=== PATIENT | male | born 1930 | race Caucasian/White ===

== ENCOUNTER 2017-10-06 14:19 | Inpatient (IN) | payer MEDICARE, BC ==
[2017-10-06] MEDS: Sodium Chloride 0.9% 10 ML Syringe FLUSH PRN (14:44)
[2017-10-06 15:13] LABS: ANION GAP 15.7; CHLORIDE,CL 100 mmol/L (101-111); SODIUM,NA 130 mmol/L (135-145)
[2017-10-06] MEDS ORDERED: Sodium Chloride 0.9% 1,000 ML IV ONE (15:35)
[2017-10-06] MEDS ORDERED: Ondansetron 4 MG Tab.DIS PO PRN (18:00)
[2017-10-06] MEDS ORDERED: Sodium Chloride 0.9% 1,000 ML IV SCH (18:00)
[2017-10-06] MEDS ORDERED: 50% Dextrose in Water 50 ML Syringe IVPUSH PRN (18:06)
[2017-10-06] MEDS: Oseltamivir 30 MG Cap PO SCH ×2 (18:45→21:42)
[2017-10-06] MEDS: Acetaminophen 325 MG Tab PO PRN (19:50)
[2017-10-06] MEDS: atorvaSTATin 20 MG Tab PO SCH (21:42)
[2017-10-06] MEDS: Heparin Sodium 5,000 Units/ML Vial SUBCUT SCH (21:42)
[2017-10-06] MEDS: Insulin Aspart 100 Units/ML 3 ML Pen SUBCUT SCH (21:43)
--- NOTE | 2017-10-07 01:03 | HP ---
CHIEF COMPLAINT: Weakness and diarrhea. HISTORY OF PRESENTING ILLNESS: Mr. Michael Spencer is an 86-year-old male with medical history significant for hypertension, hyperlipidemia, type 2 diabetes mellitus, external hemorrhoids, and benign prostatic hypertrophy, gastroesophageal reflux disease, and peptic ulcer disease in the past, presents to the ER with complaints of increasing diarrhea and weakness, and was noted to have acute renal failure and also positive for influenza B requiring admission to the hospital. The patient claims that for the last 3 to 4 days the patient has been having diarrhea, loose in nature. Initially, it started like 5 to 6 episodes a day, but yesterday had only 3 episodes a day which is leading to increasing weakness. He grades the weakness as 6/10 in intensity, aggravated on ambulation, relieved with rest, not associated with any chest pain. No shortness of breath. No abdominal pain. No cough. No sputum in the last few days, but complains of having chills and rigors at times. The patient denied any history of chest pains on exertion. No history of dyspnea on exertion. No history of orthopnea or paroxysmal nocturnal dyspnea. The patient denied any history of hematemesis, hematochezia, or melenic stools. Normal bowel and bladder habits otherwise. REVIEW OF SYSTEMS: A complete review of system including skin, ear, nose, and throat, cardiovascular system, respiratory system, gastrointestinal system, genitourinary system, hematology, oncology, neurology, allergy, immunology, constitutional were all evaluated and were negative except for the above-said notes. PAST MEDICAL HISTORY: Significant for: 1. Hypertension. 2. Type 2 diabetes mellitus. 3. Hyperlipidemia. 4. Hernia. 5. Gastroesophageal reflux disease. 6. Peptic ulcer disease. 7. Benign prostatic hypertrophy. 8. External hemorrhoids. 9. Obesity. PAST SURGICAL HISTORY: Significant for: 1. Transurethral resection of the prostate. 2. Hernia repair in the past. FAMILY HISTORY: Significant for hypertension, diabetes in his mother. SOCIAL HISTORY: History of smoking tobacco in the past, but not currently. No history of alcohol intake. ALLERGIES: Allergic history: The patient noted to have allergies to: 1. Antihistamine. 2. Penicillin. 3. Simvastatin. MEDICATIONS: Home medications include: 1. Finasteride 5 mg daily. 2. Flax oil 1000 mg daily. 3. Amaryl 2 mg twice a day. 4. Multivitamin 1 tablet daily. 5. Magnesium 1 tablet 3 times a day. 6. Metformin 1 tablet twice a day. 7. Atorvastatin 1 tablet at bedtime. 8. Omeprazole 20 mg daily. 9. Chlorthalidone 12.5 mg daily. 10.Aspirin 81 mg daily. PHYSICAL EXAMINATION: Vital Signs: Temperature of 97.5, pulse of 107, blood pressure 129/86, respiratory rate of 20, saturating at 98% on room air. General Appearance: The patient is awake, alert, and oriented to time, place, and person. Follows commands spontaneously. Cardiovascular System: S1, S2 heard with normal intensity. No gallops. Respiratory System: Clear to auscultation bilaterally. No wheeze. No crepitations. Abdomen: Soft. Bowel sounds positive. Nontender. No rigidity. No guarding. No rebound tenderness. Extremities: No edema in bilateral lower extremities. Neurology: No gross focal neurological deficits. LABORATORY DATA: Reviewed: WBC 8.1, hemoglobin 14.7, hematocrit 43.2, platelet count 199. Sodium 130, potassium 3.7, chloride 100, bicarb 18, BUN 34, creatinine 1.7, glucose 186. Lactic acid 2.3. AST 58, ALT 38. Troponin less than 0.02. Microbiology: The patient tested positive for influenza B. ASSESSMENT: 1. Influenza B positive. 2. Severe dehydration from diarrhea. 3. Acute renal failure. 4. Hypertension. 5. Type 2 diabetes mellitus. 6. Hyperlipidemia. 7. Gastroesophageal reflux disease. 8. Hyponatremia. 9. Metabolic acidosis. PLAN: 1. Severe dehydration. The patient presents with severe dehydration leading to weakness. He is also noted to have bilateral imbalance including hyponatremia, metabolic acidosis, acute renal failure. The patient will be admitted to inpatient service, will need to be hydrated with IV fluids. 2. Acute renal failure. This is mainly from severe dehydration. The patient's creatinine is at 1.7 and elevated BUN up to 34. His baseline creatinine is noted to be around 1.1. We will avoid nephrotoxic agents. Dose adjust medications for renal function. Recheck a basic metabolic panel in a.m. Keep him hydrated with IV fluids. Hold the diuretics. Maintain euvolemic status. 3. Hyponatremia. This is hypovolemic hyponatremia from severe diarrhea. Continue with IV normal saline. Recheck a basic metabolic panel in a.m. 4. Influenza B. we will start him on Tamiflu. We will have him on droplet isolation, and we will continue the Tamiflu for the next 5 days. 5. Hypertension. The patient's blood pressure seems to be in acceptable range. The patient noted not to be on any antihypertensive medications. We will closely follow. Maintain euvolemic status. 6. Type 2 diabetes mellitus. The patient noted to be on metformin. We will need to hold the metformin for underlying acute renal failure. Continue with Amaryl. Check his fingersticks with each meals. Have him on supplemental scale insulin as needed for additional coverage of his blood glucose. 7. Deep vein thrombosis prophylaxis. We will have him on heparin for DVT prophylaxis. 8. Code status. The patient wants to be DNR, DNI. 9. Discussed with the patient and family members at bedside regarding the treatment goals and options. Discussed with [facility] ER physician, regarding the plan of care. Reviewed the labs and medications. Reviewed the old charts. [facility] /[id number]
[2017-10-07] MEDS: Acetaminophen 325 MG Tab PO PRN ×2 (01:05→18:28)
[2017-10-07] MEDS: Heparin Sodium 5,000 Units/ML Vial SUBCUT SCH ×3 (06:17→21:20)
[2017-10-07] MEDS: Glimepiride 2 MG Tab PO SCH ×2 (06:17→18:27)
[2017-10-07 06:47] LABS: ANION GAP 12.3
[2017-10-07] MEDS: Lutein/Minerals/Vit A,C & E Tab PO SCH (09:35)
[2017-10-07] MEDS: Calcium Carbonate/Vitamin D3 1250 MG-200 Unit Tab PO SCH (09:35)
[2017-10-07] MEDS: Finasteride 5 MG Tab PO SCH (09:36)
[2017-10-07] MEDS: Aspirin 81 MG Tab.EC PO SCH (09:36)
[2017-10-07] MEDS: Omeprazole 20 MG Cap.CR PO SCH (09:36)
[2017-10-07] MEDS: Oseltamivir 30 MG Cap PO SCH ×2 (09:36→20:26)
[2017-10-07] MEDS: Insulin Aspart 100 Units/ML 3 ML Pen SUBCUT SCH ×4 (09:37→21:00)
[2017-10-07] MEDS: Potassium Chloride 10 MEQ Tab.ER PO SCH ×2 (12:16→18:27)
[2017-10-07] MEDS: NS + KCl 20mEq/L 1,000 ML IV SCH ×2 (12:17→22:32)
[2017-10-07] MEDS: atorvaSTATin 20 MG Tab PO SCH (20:26)
[2017-10-08] MEDS: Heparin Sodium 5,000 Units/ML Vial SUBCUT SCH ×3 (06:07→22:04)
[2017-10-08 07:01] LABS: ANION GAP 12.9
[2017-10-08] MEDS ORDERED: Glimepiride 2 MG Tab PO SCH (08:00)
[2017-10-08] MEDS: Insulin Aspart 100 Units/ML 3 ML Pen SUBCUT SCH ×4 (08:31→22:07)
--- NOTE | 2017-10-08 08:31 | EDM.PDOC ---
ED HPI GENERAL MEDICAL PROBLEM - General Chief Complaint: Gastrointestinal Problem Stated Complaint: SICK Time Seen by Provider: 10/06/17 14:45 Source of Information: Reports: Patient, Family, RN, RN Notes Reviewed History Limitations: Reports: No Limitations - History of Present Illness INITIAL COMMENTS - FREE TEXT/NARRATIVE: Pt presents to the ER with his with c/o diarrhea since Monday. He denies fever, chills, and N/V. He states his urination has been decreased and he feels overall "worn out", weak, and tired. He states he is diabetic. Onset: Gradual Bilateral Lower Back Pain Score (Numeric/FACES): 2 - Related Data Allergies Allergy/AdvReac Type Severity Reaction Status Date / Time loratadine Allergy Cannot Verified 10/06/17 14:56 Remember Penicillins Allergy Cannot Verified 10/06/17 14:56 Remember simvastatin Allergy Cannot Verified 10/06/17 14:56 Remember Home Meds: Home Meds Aspirin [Ecotrin] 1 tab PO DAILY 05/19/16 [History] Calcium Carbonate/Vitamin D3 [Calcium 500-Vit D3 200 Tablet] 1 tab PO DAILY 01/25 [History] Chlorthalidone 12.5 mg PO DAILY 05/19/16 [History] Lutein/Minerals/Vit A,C & E [Ocuvite] 1 tab PO DAILY 05/19/16 [History] Magnesium 1 tab PO TID 05/19/16 [History] Multivitamin [Multivitamins] 1 tab PO DAILY 05/19/16 [History] Omeprazole 20 mg PO DAILY 05/19/16 [History] atorvaSTATin [Lipitor] 1 tab PO BEDTIME 05/19/16 [History] metFORMIN HCl [Glucophage] 1 tab PO BIDAC 05/19/16 [History] Finasteride 5 mg PO DAILY 10/06/17 [History] Flaxseed Oil [Flax Oil] 1,000 mg PO DAILY 10/06/17 [History] Glimepiride [Amaryl] 2 mg PO BIDAC 10/06/17 [History] Past Medical History HEENT History: Reports: Other (See Below) Other HEENT History: wears glasses, farsighted Cardiovascular History: Reports: Heart Murmur, High Cholesterol, Hypertension Respiratory History: Reports: Other (See Below) Other Respiratory History: pneumonia x2 in past Gastrointestinal History: Reports: Colon Polyp, GERD, Hemorrhoids, Other (See Below) Other Gastrointestinal History: peptic ulcer stricture, Minaya's esophagus, ventral hernia Genitourinary History: Reports: BPH, Other (See Below) Other Genitourinary History: UTI once Musculoskeletal History: Reports: Other (See Below) Other Musculoskeletal History: degenerative joint disease Endocrine/Metabolic History: Reports: Diabetes, Type II, Obesity/BMI 30+ Dermatologic History: Reports: Other (See Below) Other Dermatologic History: Roseacia, has ointment - Infectious Disease History Infectious Disease History: Reports: Chicken Pox, Measles - Past Surgical History GI Surgical History: Reports: Hernia, Inguinal, Hernia Repair/Other Male Surgical History: Reports: TURP-Transurethral Resection of Prostate Neurological Surgical History: Reports: Other (See Below) Musculoskeletal Surgical History: Reports: Other (See Below) Other Musculoskeletal Surgeries/Procedures:: herniated disk surgery 2006 Social & Family History - Family History Cardiac: Reports: Hypertension, [place], Other (See Below) Other Cardiac Family History: both parents - Tobacco Use Smoking Status *Q: Former Smoker Years of Tobacco use: 25 Used Tobacco, but Quit: Yes Month/Year Tobacco Last Used: jul Second Hand Smoke Exposure: No - Caffeine Use Caffeine Use: Reports: Coffee, Soda, Tea - Alcohol Use Days Per Week of Alcohol Use: 1 Number of Drinks Per Day: 2 Total Drinks Per Week: 2 - Recreational Drug Use Recreational Drug Use: No ED ROS GENERAL - Review of Systems Review Of Systems: ROS reveals no pertinent complaints other than HPI. ED EXAM, GI/ABD - Physical Exam Exam: See Below Exam Limited By: No Limitations General Appearance: Alert, WD/WN, No Apparent Distress, Other (Appears ill, weak and tired.) Eyes: Bilateral: Normal Appearance, EOMI Ears: Normal External Exam, Hearing Grossly Normal Nose: Normal Inspection Throat/Mouth: Normal Inspection, Normal Voice, No Airway Compromise Head: Atraumatic, Normocephalic Neck: Normal Inspection Respiratory/Chest: No Respiratory Distress, No Accessory Muscle Use, Chest Non- Tender, Decreased Breath Sounds Cardiovascular: Normal Peripheral Pulses, No Edema, No Gallop, No JVD, No Murmur , No Rub, Irregularly Irregular GI/Abdominal Exam: Normal Bowel Sounds, Soft, Tender (Male) Exam: Deferred Rectal (Males) Exam: Deferred Back Exam: Normal Inspection Extremities: Normal Inspection, Normal Range of Motion Neurological: Alert, Oriented Psychiatric: Normal Affect, Normal Mood Skin Exam: Warm, Dry, Intact, Normal Color, No Rash Lymphatic: No Adenopathy Course - Vital Signs Last Recorded V/S: Last Vital Signs Temp 98.8 F 10/08/17 07:59 Pulse 69 10/08/17 07:59 Resp 20 10/08/17 07:59 BP 100/46 L 10/08/17 07:59 Pulse Ox 95 10/08/17 07:59 - Orders/Labs/Meds Orders: Medication Orders Acetaminophen (Tylenol) 650 mg PO Q4H PRN PRN Reason: Pain (Mild 1-3)/fever Last Admin: 10/07/17 18:28 Dose: 650 mg Admin: 10/07/17 01:05 Dose: 650 mg Admin: 10/06/17 19:50 Dose: 650 mg Aspirin (Halfprin) 81 mg PO DAILY [facility] Last Admin: 10/07/17 09:36 Dose: 81 mg Atorvastatin Calcium (Lipitor) 20 mg PO BEDTIME [facility] Last Admin: 10/07/17 20:26 Dose: 20 mg Admin: 10/06/17 21:42 Dose: 20 mg Calcium Carbonate (Calcium Carbonate/Vitamin D 1250 Mg-200 Unit) 1 tab PO DAILY [facility] Last Admin: 10/07/17 09:35 Dose: 1 tab Dextrose/Water (Dextrose 50% In Water) 50 ml IVPUSH ONETIME PRN PRN Reason: Hypoglycemia Finasteride (Proscar) 5 mg PO DAILY [facility] Last Admin: 10/07/17 09:36 Dose: 5 mg Glimepiride (Amaryl) 2 mg PO BIDMEALS [facility] Last Admin: 10/08/17 08:41 Dose: 2 mg Heparin Sodium (Porcine) (Heparin Sodium) 5,000 units SUBCUT Q8HR [facility] Last Admin: 10/08/17 06:07 Dose: 5,000 units Admin: 10/07/17 21:20 Dose: 5,000 units Admin: 10/07/17 14:14 Dose: 5,000 units Admin: 10/07/17 06:17 Dose: 5,000 units Admin: 10/06/17 21:42 Dose: 5,000 units Potassium Chloride/Sodium Chloride (Normal Saline With 20 Meq Kcl) 1,000 mls @ 100 mls/hr IV ASDIRECTED [facility] Last Admin: 10/07/17 22:32 Dose: 100 mls/hr Infusion: 10/07/17 22:17 Dose: 100 mls/hr Admin: 10/07/17 12:17 Dose: 100 mls/hr Insulin Aspart (Novolog) 0 unit SUBCUT QID [facility]; Protocol Last Admin: 10/07/17 21:00 Dose: Not Given Admin: 10/07/17 17:27 Dose: Not Given Admin: 10/07/17 12:20 Dose: Not Given Admin: 10/07/17 09:37 Dose: Not Given Admin: 10/06/17 21:43 Dose: Magnesium Oxide (Magnesium Oxide) 250 mg PO TID [facility] Last Admin: 10/07/17 20:26 Dose: 250 mg Admin: 10/07/17 14:13 Dose: 250 mg Admin: 10/07/17 09:36 Dose: 250 mg Admin: 10/06/17 21:42 Dose: 250 mg Multivitamins/Minerals (I-Bre) 1 each PO DAILY [facility] Last Admin: 10/07/17 09:35 Dose: 1 each Flaxseed Oil [Flax (Oil] 1,000mg) 1,000 mg PO DAILY [facility] Omeprazole (Omeprazole) 20 mg PO DAILY [facility] Last Admin: 10/07/17 09:36 Dose: 20 mg Ondansetron HCl (Zofran Odt) 4 mg PO Q4H PRN PRN Reason: nausea, able to take PO Oseltamivir Phosphate (Tamiflu) 30 mg PO BID [facility] Last Admin: 10/07/17 20:26 Dose: 30 mg Admin: 10/07/17 09:36 Dose: 30 mg Admin: 10/06/17 21:42 Dose: 30 mg Admin: 10/06/17 18:45 Dose: 30 mg Potassium Chloride (Klor-Con 10) 20 meq PO BIDMEALS [facility] Last Admin: 10/07/17 18:27 Dose: 20 meq Admin: 10/07/17 12:16 Dose: 20 meq Sodium Chloride (Saline Flush) 10 ml FLUSH ASDIRECTED PRN PRN Reason: Keep Vein Open Last Admin: 10/06/17 14:44 Dose: 10 ml Labs: Laboratory Tests 10/06/17 10/06/17 10/06/17 Range/Units 14:42 14:42 14:42 WBC 8.1 (5.0-10.0) 10^3/uL RBC 4.57 L (4.6-6.2) 10^6/uL Hgb 14.7 (14.0-18.0) g/dL Hct 43.2 (40.0-54.0) % MCV 94.5 (80-100) fL MCH 32.2 (27.0-34.0) pg MCHC 34.0 (33.0-35.0) g/dL Plt Count 199 (150-450) 10^3/uL Neut % (Auto) 84.9 H (42.2-75.2) % Lymph % (Auto) 7.5 L (20.5-50.1) % [place] % (Auto) 7.5 (2-8) % Eos % (Auto) 0.0 L (1.0-3.0) % Baso % (Auto) 0.1 (0.0-1.0) % Sodium 130 L (135-145) mmol/L Potassium 3.7 (3.6-5.0) mmol/L Chloride 100 L (101-111) mmol/L Carbon Dioxide 18.0 L (21.0-31.0) mmol/L Anion Gap 15.7 BUN 34 H (7-18) mg/dL Creatinine 1.7 H (0.6-1.3) mg/dL Est Cr Clr Drug Dosing 28.14 mL/min Estimated GFR (MDRD) 39 BUN/Creatinine Ratio 20.00 Glucose 186 H (74-105) mg/dL Lactic Acid 2.3 H (0.5-2.2) mmol/L Calcium 8.4 (8.4-10.2) mg/dl Total Bilirubin 0.9 (0.2-1.0) mg/dL AST 58 H (10-42) IU/L ALT 38 (10-60) IU/L Alkaline Phosphatase 61 (42-121) IU/L Troponin I < 0.02 (0.00-0.02) ng/ml Total Protein 7.1 (6.7-8.2) g/dl Albumin 4.0 (3.2-5.5) g/dl Globulin 3.1 Albumin/Globulin Ratio 1.29 Influenza A: Negative Influenza B: POSITIVE Meds: Medications Generic Name Dose Route Start Last Admin Trade Name Freq PRN Reason Stop Dose Admin Acetaminophen 650 mg 10/06/17 18:00 10/07/17 18:28 Tylenol PO 650 mg Q4H PRN Administration Pain (Mild 1-3)/fever Aspirin 81 mg 10/07/17 09:00 10/08/17 08:42 Halfprin PO 81 mg DAILY DHEERAJ Administration Atorvastatin Calcium 20 mg 10/06/17 21:00 10/07/17 20:26 Lipitor PO 20 mg BEDTIME DHEERAJ Administration Calcium Carbonate 1 tab 10/07/17 09:00 10/08/17 08:42 Calcium Carbonate/Vitamin D 1250 Mg-200 Unit PO 1 tab DAILY DHEERAJ Administration Dextrose/Water 50 ml 10/06/17 18:06 Dextrose 50% In Water IVPUSH ONETIME PRN Hypoglycemia Finasteride 5 mg 10/07/17 09:00 10/08/17 08:42 Proscar PO 5 mg DAILY DHEERAJ Administration Glimepiride 2 mg 10/08/17 08:00 10/08/17 08:41 Amaryl PO 2 mg BIDMEALS DHEERAJ Administration Heparin Sodium (Porcine) 5,000 units 10/06/17 22:00 10/08/17 06:07 Heparin Sodium SUBCUT 5,000 units Q8HR DHEERAJ Administration Potassium Chloride/Sodium Chloride 1,000 mls @ 100 mls/hr 10/07/17 10:15 08:39 Normal Saline With 20 Meq Kcl IV Infused ASDIRECTED [facility] Infusion Insulin Aspart 0 unit 10/06/17 21:00 10/08/17 08:31 Novolog SUBCUT Not Given QID [facility] Protocol Magnesium Oxide 250 mg 10/06/17 21:00 10/08/17 08:41 Magnesium Oxide PO 250 mg TID DHEERAJ Administration Multivitamins/Minerals 1 each 10/07/17 09:00 10/08/17 08:43 I-Bre PO 1 each DAILY [facility] Administration Flaxseed Oil [Flax 1,000 mg 10/07/17 09:00 Oil] 1,000mg PO DAILY [facility] Omeprazole 20 mg 10/07/17 09:00 10/08/17 08:42 Omeprazole PO 20 mg DAILY [facility] Administration Ondansetron HCl 4 mg 10/06/17 18:00 Zofran Odt PO Q4H PRN nausea, able to take PO Oseltamivir Phosphate 30 mg 10/06/17 18:15 10/08/17 08:42 Tamiflu PO 30 mg BID DHEERAJ Administration Potassium Chloride 20 meq 10/07/17 10:15 10/08/17 08:42 Klor-Con 10 PO 20 meq BIDMEALS DHEERAJ Administration Sodium Chloride 10 ml 10/06/17 14:36 10/08/17 08:40 Saline Flush FLUSH 10 ml ASDIRECTED PRN Administration Keep Vein Open Discontinued Medications Generic Name Dose Route Start Last Admin Trade Name Freq PRN Reason Stop Dose Admin Glimepiride 2 mg 10/07/17 06:00 10/07/17 18:27 Amaryl PO 2 mg BIDAC DHEERAJ Administration Sodium Chloride 1,000 mls @ 150 mls/hr 10/06/17 15:35 10/06/17 18:22 Normal Saline IV 10/06/17 22:14 100 mls/hr .BOLUS ONE Infusion Sodium Chloride 1,000 mls @ 100 mls/hr 10/06/17 18:00 10/07/17 12:15 Normal Saline IV Infused ASDIRECTED DHEERAJ Infusion Departure - Departure Time of Disposition: 16:03 Disposition: Admitted As Inpatient 68 Condition: Fair Clinical Impression: Influenza B - Discharge Information
[2017-10-08] MEDS: Sodium Chloride 0.9% 10 ML Syringe FLUSH PRN ×2 (08:40→22:05)
[2017-10-08] MEDS: Calcium Carbonate/Vitamin D3 1250 MG-200 Unit Tab PO SCH (08:42)
[2017-10-08] MEDS: Potassium Chloride 10 MEQ Tab.ER PO SCH ×2 (08:42→17:37)
[2017-10-08] MEDS: Aspirin 81 MG Tab.EC PO SCH (08:42)
[2017-10-08] MEDS: Finasteride 5 MG Tab PO SCH (08:42)
[2017-10-08] MEDS: Omeprazole 20 MG Cap.CR PO SCH (08:42)
[2017-10-08] MEDS: Oseltamivir 30 MG Cap PO SCH ×2 (08:42→22:04)
[2017-10-08] MEDS: Lutein/Minerals/Vit A,C & E Tab PO SCH (08:43)
[2017-10-08] MEDS ORDERED: Loperamide 2 MG Cap PO PRN (12:36)
--- NOTE | 2017-10-08 12:45 | PN ---
DATE: 10/08/2017 SUBJECTIVE: Mr. Tj Rodriguez is an 86-year-old male with medical history significant for hypertension, hyperlipidemia, type 2 diabetes mellitus, external hemorrhoids, admitted to the hospital with complaints of increasing weakness and tiredness and noted to have acute renal failure and positive for influenza B. For the last 24 hours, the patient was continued on IV fluids. He denies any chest pain. No shortness of breath. No abdominal pain, no nausea, no vomiting, but continues to have loose stools. Denies any abdominal pain at this time. REVIEW OF SYSTEMS: Cardiovascular, respiratory, gastrointestinal, neurology, constitutional were all evaluated. PHYSICAL EXAMINATION: Vital Signs: Temperature of 98.8, pulse of 69, blood pressure of 100/46, respiratory rate of 20, saturating at 95% on room air. General Appearance: The patient is well oriented to time, place, and person. Follows commands spontaneously. Cardiovascular System: S1, S2 heard with normal intensity. No gallops. Respiratory System: Clear to auscultation bilaterally. No wheeze. No crepitations. Abdomen: Soft. Bowel sounds positive. Nontender. No rigidity. Extremities: No edema, bilateral lower extremities. Neurology: No gross focal neurological deficit. MEDICATIONS: Reviewed. 1. We will decrease Amaryl to 1 mg twice a day. 2. Continue with Tamiflu for now. 3. Omeprazole. 4. Continue the other medications including potassium chloride supplement. LABORATORY DATA: labs reviewed. WBC 5, hemoglobin 12.9, hematocrit 37.8, platelet count 150. Sodium 136, potassium 3.9, chloride 105, bicarb 22, BUN 21, creatinine 1.3, glucose of 59. ASSESSMENT: 1. Influenza B. 2. Hypertension. 3. Type 2 diabetes mellitus. 4. Hyperlipidemia. 5. Acute renal failure. 6. severe dehydration from diarrhea. 7. Gastroesophageal reflux disease. 8. Hyponatremia. 9. Hypokalemia. PLAN: 1. Influenza B. The patient's symptoms seems to be improving. He is currently on Tamiflu, continue the same. 2. Hyponatremia. The patient was noted to have sodium of 130 at the time of admission, which has improved to 136, we will hold IV fluids. 3. Hypokalemia. The patient's potassium was down to 3.3, has improved to 3.9 at this time. We will continue with potassium chloride supplement. 4. Acute renal failure. The patient's creatinine was at 1.7 at the time of admission, improved to 1.3 at this time. Avoid any nephrotoxic agents. Dose adjust medications for renal function. Recheck a basic metabolic panel in the a.m. 5. Type 2 diabetes mellitus, uncontrolled. The patient was noted to have low blood sugar this morning at 59. We will decrease Amaryl to 1 mg twice a day. 6. Diarrhea. The patient continues to have diarrhea. We will give Imodium at this time. His stool culture was negative. 7. Hypertension. The patient's blood pressure seems to be in acceptable range. We will closely follow. 8. Possible discharge in a.m. if he remains hemodynamically stable. 9. Discussed with family members at bedside. [facility] /[id number]
[2017-10-08] MEDS: FLAXSEED OIL 1000 MG PO SCH (16:52)
[2017-10-08] MEDS: Glimepiride 2 MG Tab PO SCH (17:38)
[2017-10-08] MEDS ORDERED: diphenhydrAMINE 25 MG Tab PO ONE (18:18)
[2017-10-08] MEDS: atorvaSTATin 20 MG Tab PO SCH (22:04)
[2017-10-09] MEDS: Heparin Sodium 5,000 Units/ML Vial SUBCUT SCH (06:08)
--- NOTE | 2017-10-09 09:10 | PN ---
DATE: 10/07/2017 SUBJECTIVE: Mr. Tj Rodriguez is an 86-year-old male with medical history significant for hypertension, hyperlipidemia, and type 2 diabetes mellitus, admitted with increasing weakness and tiredness and noted to have influenza B. For the last 24 hours, the patient continued to have fevers. His T-max was 101.5. Continues to have weakness, tiredness, and low blood pressure. Denies any chest pain. No shortness of breath. No abdominal pain. No nausea. No vomiting. His diarrhea seems to be slightly better. REVIEW OF SYSTEMS: Cardiovascular, respiratory, gastrointestinal, neurology, constitutional were all evaluated. PHYSICAL EXAMINATION: Vital Signs: Temperature of 98.6, pulse of 93, blood pressure of 101/59, respiratory rate of 20, and saturating at 95% on room air. General Appearance: The patient is well oriented to time, place, and person. Follows commands spontaneously. Cardiovascular System: S1 and S2 heard with normal intensity. No gallops. Respiratory System: Clear to auscultation bilaterally. No wheeze. No crepitations. Abdomen: Soft. Bowel sounds positive. Nontender. No rigidity. Extremities: No edema in the bilateral lower extremities. Neurology: No gross focal neurological deficit. MEDICATIONS: Reviewed. Continue with: 1. Tylenol 650 every 4 hours as needed for pain. 2. Aspirin 81 mg daily. 3. Lipitor 20 mg at bedtime. 4. Proscar 5 mg daily. 5. Amaryl 2 mg twice a day. 6. Heparin 5000 subcutaneous q.8 hourly. 7. NovoLog supplemental scale. 8. Magnesium oxide 250 mg three times a day. 9. Omeprazole 20 mg daily. 10.Tamiflu 30 mg twice a day. 11.Potassium chloride 20 mEq twice a day. LABORATORY DATA: Reviewed. 1. WBC 6.2, hemoglobin 13.1, hematocrit 38.7, platelet count 139. 2. Sodium 130, potassium 3.3, chloride 101, bicarb 28, creatinine 1.5, glucose 101. 3. Magnesium 1.5, phosphorus 2.5. 4. Urinalysis negative for nitrites, negative for leukocytes. MICROBIOLOGY: Positive for influenza B. ASSESSMENT: 1. Influenza B. 2. Generalized debility. 3. Diarrhea, improved. 4. Hypertension. 5. Pvitf-nd-fwrnckc renal failure. 6. Type 2 diabetes mellitus. 7. Hyperlipidemia. 8. Gastroesophageal reflux disease. 9. Hypokalemia. 10.Hyponatremia. 11.Metabolic acidosis. PLAN: 1. Influenza B. The patient is diagnosed with influenza B. He is currently on Tamiflu. Continue the same. Maintain droplet isolation. 2. Diarrhea. The patient continues to have loose stools, but much better from the time of admission. We will closely follow. 3. Xaprh-ms-dxkddso renal failure. The patient is kept hydrated with IV fluids. Continue the same. His creatinine is improved to 1.5. Avoid any nephrotoxic agents. Dose adjust medications for renal function. 4. Type 2 diabetes mellitus. Blood sugars are in acceptable range. Continue with NovoLog supplemental scale. Continue to hold the metformin. 5. Hypokalemia. We will replace with IV and oral potassium chloride. Recheck a basic metabolic panel in the a.m. 6. Hypertension. The patient's blood pressure seems to be borderline. Avoid any antihypertensive medications. Avoid any hypotensive episodes. 7. DVT prophylaxis. Continue with heparin for DVT prophylaxis. 8. Hypomagnesemia. Continue with oral magnesium. We will give 1 g of magnesium sulfate. Recheck a magnesium in the a.m. 9. Gastroesophageal reflux disease. Continue with proton pump inhibitor. [facility] /[id number]
[2017-10-09] MEDS: Potassium Chloride 10 MEQ Tab.ER PO SCH (10:24)
[2017-10-09] MEDS: Glimepiride 2 MG Tab PO SCH (10:24)
[2017-10-09] MEDS: Aspirin 81 MG Tab.EC PO SCH (10:24)
[2017-10-09] MEDS: Insulin Aspart 100 Units/ML 3 ML Pen SUBCUT SCH (10:25)
[2017-10-09] MEDS: Omeprazole 20 MG Cap.CR PO SCH (10:26)
[2017-10-09] MEDS: Oseltamivir 30 MG Cap PO SCH (10:26)
[2017-10-09 11:21] VITALS: BP 119/62
[2017-10-09] MEDS: Lutein/Minerals/Vit A,C & E Tab PO SCH (11:41)
[2017-10-09] MEDS: Finasteride 5 MG Tab PO SCH (11:41)
[2017-10-09] MEDS: Calcium Carbonate/Vitamin D3 1250 MG-200 Unit Tab PO SCH (11:41)
[2017-10-09] MEDS ORDERED: Oseltamivir 30 MG Cap PO ONE (13:19)
[2017-10-09] MEDS ORDERED: Aspirin 81 MG Tab.EC PO ONE (13:19)
[2017-10-09] MEDS ORDERED: Omeprazole 20 MG Cap.CR PO ONE (13:19)
[2017-10-09] MEDS ORDERED: Potassium Chloride 10 MEQ Tab.ER PO ONE (13:19)
[2017-10-09] MEDS ORDERED: Finasteride 5 MG Tab PO ONE (13:19)
[2017-10-09] MEDS ORDERED: Calcium Carbonate/Vitamin D3 1250 MG-200 Unit Tab PO ONE (13:19)
[2017-10-09] MEDS ORDERED: Glimepiride 2 MG Tab PO ONE (13:19)
[2017-10-09] MEDS ORDERED: Lutein/Minerals/Vit A,C & E Tab PO ONE (13:19)
--- NOTE | 2017-10-09 15:05 | DISCH ---
DATE OF SERVICE: 10/09/2017 ADMITTING DIAGNOSES: 1. Influenza B positive. 2. Severe dehydration from diarrhea. 3. Acute renal failure from dehydration. 4. Hyponatremia. 5. Metabolic acidosis from severe diarrhea. DISCHARGE DIAGNOSES: 1. Influenza B positive, treated with Tamiflu. 2. Severe dehydration from diarrhea, improved. 3. Acute renal failure, improved with IV hydration. 4. Metabolic acidosis, improved. 5. Hyponatremia, improved at the time of discharge. HISTORY OF PRESENTING ILLNESS: Mr. Tj Rodriguez is an 86-year-old male with medical history significant for hypertension, hyperlipidemia, type 2 diabetes mellitus, benign prostatic hypertrophy, gastroesophageal reflux disease, and peptic ulcer disease, presented to the hospital with complaints of increasing diarrhea, weakness, and tiredness, and was tested positive for influenza B. He was also noted to have acute renal failure with metabolic acidosis and hyponatremia at the time of admission. His sodium was 130, creatinine of 1.7 at the time of admission, he got treated with IV fluids, and his sodium improved to 136 at the time of discharge, and his creatinine was back to his baseline function at 1.3. He was treated with Tamiflu for his influenza, his diarrhea also got improved. He remained hemodynamically stable on this admission. He was also noted to have hypomagnesemia requiring supplement. He is able to ambulate well without any difficulty. He is able to tolerate oral feeds well. He was also noted to have uncontrolled diabetes with hypoglycemic episode. His blood sugar was around 54 on 10/08, so we will decrease his Amaryl to 1 mg twice a day. The patient's claims that even at home he has episodes of hypoglycemia, so the patient is educated about maintaining a log book and taking the log book to his primary care physician. As he was noted to have low blood sugar, we decreased his Amaryl to 1 mg twice a day. Continue with metformin for now. He is discharged home in stable condition. DISCHARGE MEDICATIONS: Include, 1. Aspirin 81 mg once a day. 2. Calcium carbonate with vitamin D one tablet daily. 3. Chlorthalidone 12.5 mg daily. 4. Finasteride 5 mg daily. 5. Flax oil 1000 mg daily. 6. Amaryl 1 mg twice a day. 7. Ocuvite one tablet daily. 8. Magnesium one tablet 3 times a day. 9. Multivitamin one tablet daily. 10.Omeprazole 20 mg daily. 11.Tamiflu 45 mg twice a day. 12.Lipitor one tablet at bedtime. 13.Metformin 1000 mg twice a day. PHYSICAL EXAMINATION: Vital Signs: On the day of discharge vitals; temperature of 98.6, pulse of 79, blood pressure 119/62, respiratory rate of 20, saturating 96% on room air. General Appearance: The patient is well oriented to time, place, and person. Follows commands spontaneously. Cardiovascular System: S1, S2 heard with normal intensity. No gallops. Respiratory System: Clear to auscultation bilaterally. No wheeze. No crepitations. Abdomen: Soft. Bowel sounds positive. Nontender. No rigidity. No guarding. No rebound tenderness. Extremities: No edema, bilateral lower extremities. Neurology: No gross focal neurological deficits. CONDITION ON ADMISSION: Poor. CONDITION ON DISCHARGE: Stable. DISPOSITION: Discharged to home. ACTIVITY: As tolerated. DIET: Cardiac healthy diet and consistent carbohydrate diet. FOLLOWUP: Follow up with primary care physician in next 1-2 weeks of time. TIME SPENT: Spent over 35 minutes of time in evaluating and treating this patient and discharge planning. [facility] /[id number]
--- NOTE | 2017-10-10 07:38 | EKG ---
10/06/2017- MAREK BATISTA - FINDINGS: Twelve-lead EKG shows normal sinus rhythm with no significant ST elevation or ST depression noted at this time. Nonspecific ST-T wave changes noted on lead V2 and V3. [facility] /[id number]
== END 2017-10-09 13:20 | disposition home or self-care (01) | DRG 194 ==
LOC: DL.ED 14:19 → DL.MS 16:42 → INTOOBSV 16:42 → UNDOADMOB 16:42 → OBSVTOIN 16:42 → DL.MS 18:00 → OBSVTOIN 18:00
PROVIDERS: ADMIT Internal Medicine; ATTEND Internal Medicine
DX: J10.1 Influenza due to other identified influenza virus with other respiratory manifestations (principal); E11.9 Type 2 diabetes mellitus without complications; E78.00 Pure hypercholesterolemia, unspecified; I10 Essential (primary) hypertension; N17.9 Acute kidney failure, unspecified; K64.9 Unspecified hemorrhoids; E87.1 Hypo-osmolality and hyponatremia; E87.2 Acidosis; E11.649 Type 2 diabetes mellitus with hypoglycemia without coma; R53.81 Other malaise; E11.22 Type 2 diabetes mellitus with diabetic chronic kidney disease; I12.9 Hypertensive chronic kidney disease with stage 1 through stage 4 chronic kidney disease, or unspecified chronic kidney disease; N18.9 Chronic kidney disease, unspecified; E87.6 Hypokalemia; E83.42 Hypomagnesemia; E86.0 Dehydration; E86.1 Hypovolemia; K21.9 Gastro-esophageal reflux disease without esophagitis; E78.5 Hyperlipidemia, unspecified; R19.7 Diarrhea, unspecified; R53.1 Weakness; R53.83 Other fatigue; K22.70 Barrett's esophagus without dysplasia; L71.9 Rosacea, unspecified; H52.00 Hypermetropia, unspecified eye; K64.4 Residual hemorrhoidal skin tags; R01.1 Cardiac murmur, unspecified; E66.9 Obesity, unspecified; Z68.30 Body mass index [BMI] 30.0-30.9, adult; Z87.891 Personal history of nicotine dependence; Z88.0 Allergy status to penicillin; Z88.8 Allergy status to other drugs, medicaments and biological substances; Z79.84 Long term (current) use of oral hypoglycemic drugs; Z86.010 Personal history of colon polyps; Z79.82 Long term (current) use of aspirin; Z79.899 Other long term (current) drug therapy; Z87.11 Personal history of peptic ulcer disease; Z66 Do not resuscitate; Z28.21 Immunization not carried out because of patient refusal
CPT/HCPCS: 36415; 80053; 83605; 84484; 85025; 87040; 87045; 87328; 87329; 87493; 87804 ×2; 87899 ×2; 93005; 93010; 99285; J7030; J7050; 71045; 80048; 81001; 82962; 83735; 84100; 85027; 87046; 97161-GP; 97165-GO; 99284; A9270-GY; J1644; J1815-GY; J3480